=== PATIENT | male | born 1965 | race Caucasian/White ===

== ENCOUNTER 2016-03-13 10:54 | Emergency (ER) | payer OTHER ==
[~2016-03-13] VITALS: Ht 182.8 cm; Wt 93.0 kg
[2016-03-13] MEDS ORDERED: CYCLOBENZAPRINE10 MG PO (11:54)
[2016-03-13] MEDS ORDERED: NAPROSYN500 MG PO (11:54)
== END 2016-03-13 11:54 | disposition home or self-care (01) ==
LOC: ED 10:54
DX: M54.31 Sciatica, right side (principal)

== ENCOUNTER 2017-05-26 16:31 | Emergency (ER) | payer OTHER ==
[~2017-05-26] VITALS: Ht 182.8 cm; Wt 93.0 kg
[~2017-05-26 16:31] MED LIST: CYCLOBENZAPRINE10 MG PO; NAPROSYN500 MG PO
[2017-05-26 17:50] LABS: HEMATOCRIT 40.8 % (42.0-52.0); HEMOGLOBIN 14.2 g/dl (14.0-18.0); LYMPH # 0.9 10*3/uL (1.3-4.4); LYMPH % 14.1 % (27.0-41.0); MEAN CELL VOLUME 86.8 fl (80.0-94.0); MEAN CORPUSCULAR HGB 30.2 pg (27.0-31.0); MEAN CORPUSCULAR HGB CONC 34.8 g/dl (33.0-37.0); MEAN PLATELET VOLUME 9.5 fl (9.6-12.3); MONO # 0.7 10*3/uL (0.1-1.0); MONO % 11.2 % (3.0-9.0); NEUT # 4.7 10*3/uL (2.3-7.9); NEUT % 74.5 % (47.0-73.0); PLATELET COUNT AUTOMATED 150 10*3/uL (130-400); RED CELL DISTRI WIDTH 12.8 % (0-14.5); WHITE BLOOD COUNT 6.3 10*3/uL (4.8-10.8)
[2017-05-26 18:06] LABS: ALBUMIN 3.7 gm/dl (3.1-4.5); ALKALINE PHOSPHATASE 58 U/L (45-117); BUN 10 mg/dl (7-24); CHLORIDE 100 mmol/L (98-107); CREATININE 1.07 mg/dL (0.70-1.30); POTASSIUM 3.4 mmol/L (3.5-5.1); SGOT/AST 23 IU/L (3-35); SGPT/ALT 28 U/L (12-78); SODIUM 136 mmol/L (136-145)
[2017-05-26 18:08] LABS: TROPONIN I < 0.015 ng/ml (<0.045)
[2017-05-26] MEDS ORDERED: ZITHROMAX250 MG PO (18:35)
[2017-05-26] MEDS ORDERED: MEDROL DOSEPAK4 MG PO (18:35)
[2017-05-26] MEDS ORDERED: PROAIR HFA8.5 GM INH (18:35)
== END 2017-05-26 18:40 | disposition home or self-care (01) ==
LOC: ED 16:31
PROVIDERS: Nurse Practitioner Family
DX: J40 Bronchitis, not specified as acute or chronic (principal); R53.81 Other malaise; R51 Headache

== ENCOUNTER 2018-03-28 18:40 | Inpatient (IN) | payer OTHER ==
[~2018-03-28] VITALS: Ht 182.8 cm; Wt 85.8 kg
--- NOTE | ~2018-03-28 | EKG ---
[place], [place] ELECTROCARDIOGRAM REPORT NAME: LESIA MONTOYA UNIT #: [id number] ROOM: 530 DOCTOR: DOROTHY DRAFT REPORT BIRTHDATE: [birth year] [facility] Test Date: 2018-03-28 Test Time: 18:49:12 Pat Name: LESIA MONTOYA Department: Room: 530 Gender: M Candy Dipper Hand: Dominique Conley : 1965 Requested By: ART MCKEON DNP Order Number: [id number] Reading MD: Steven Plascencia MD Measurements Intervals [place] Rate: 140 P: CO: QRS: -19 QRSD: 84 T: 6 QT: 312 QTc: 476 Interpretive Statements Atrial fibrillation Ventricular premature complex or aberrant conduction Minimal ST depression, inferior leads Baseline wander in lead(s) V5 No previous ECG available for comparison Electronically Signed On 03-28-2018 19:27:06 PST by Steven Plascencia MD CM:EKGRPT:ELECTROCARDIOGRAM REPORT 48 26 ART DE LA CRUZ DRAFT REPORT ART MCKEON DNP
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
[~2018-03-28 18:40] MED LIST changes: +MEDROL DOSEPAK4 MG PO; +PROAIR HFA8.5 GM INH; +ZITHROMAX250 MG PO
[2018-03-28 18:41] VITALS: BP 110/81
--- NOTE | 2018-03-28 18:49 | NUR ---
EKG NOTIFIED OF PATIENT NEEDING EKG.
--- NOTE | 2018-03-28 19:05 | NUR ---
NURSE TO NURSE REPORT TAKEN. PT STABLE AT THIS TIME. NO VOICED COMPLAINTS. WILL CONTINUE TO MONITOR.
[2018-03-28 19:22] LABS: BASO % 0.2 % (0.0-1.0); HEMOGLOBIN 17.2 g/dl (14.0-18.0); LYMPH # 0.7 10*3/uL (1.3-4.4); LYMPH % 5.3 % (27.0-41.0); MEAN CELL VOLUME 88.8 fl (80.0-94.0); MEAN CORPUSCULAR HGB 30.6 pg (27.0-31.0); MEAN CORPUSCULAR HGB CONC 34.4 g/dl (33.0-37.0); MEAN PLATELET VOLUME 9.4 fl (9.6-12.3); MONO # 0.6 10*3/uL (0.1-1.0); MONO % 4.6 % (3.0-9.0); NEUT # 11.1 10*3/uL (2.3-7.9); NEUT % 89.6 % (47.0-73.0); PLATELET COUNT AUTOMATED 237 10*3/uL (130-400); RED BLOOD COUNT 5.63 10*6/uL (4.50-5.90); RED CELL DISTRI WIDTH 12.1 % (0-14.5); WHITE BLOOD COUNT 12.4 10*3/uL (4.8-10.8)
[2018-03-28 19:23] VITALS: BP 132/53
--- NOTE | 2018-03-28 19:26 | NUR ---
CARDIZEM IV INFUSING AT 5MG/HR, HR 146
[2018-03-28 19:30] LABS: ACT PARTIAL THROMBO TIME 25.4 SECONDS (20.8-31.5)
[2018-03-28 19:41] LABS: ALBUMIN 4.3 gm/dl (3.1-4.5); ALKALINE PHOSPHATASE 64 U/L (45-117); BUN 19 mg/dl (7-24); CHLORIDE 106 mmol/L (98-107); CREATININE 1.17 mg/dL (0.70-1.30); POTASSIUM 4.3 mmol/L (3.5-5.1); SGOT/AST 19 IU/L (3-35); SGPT/ALT 21 U/L (12-78); SODIUM 142 mmol/L (136-145); TOTAL PROTEIN 7.8 gm/dL (6.4-8.2)
[2018-03-28 19:44] LABS: TROPONIN I < 0.015 ng/ml (<0.045)
[2018-03-28 19:57] VITALS: BP 111/66
[2018-03-28 20:00] VITALS: BP 121/63
--- NOTE | 2018-03-28 20:00 | NUR ---
Time: A 52 year old M admitted to 5E under services of STERLING SNEED DO. Pt. arrived via bed from ER. Chief complaint: CHEST PAIN, NAUSEA. ANKUSH PORRAS
--- NOTE | 2018-03-28 20:17 | NUR ---
INCREASED CARDIZEM TO 10MG/HR. PT HR 112. B/P 111/66
--- NOTE | 2018-03-28 21:50 | NUR ---
CARDIOLOGY MADE AWARE OF CONSULT.
--- NOTE | 2018-03-28 21:56 | NUR ---
DR. ARZATE CONSULTED. DISCCUSED STABILITY AND TREATMENT OF PT. ORDERS ARE TO START PT ON ASPRIN 81MG DAILY. WILL PUT IN ORDERS VIA 'S REQUEST
[2018-03-29] VITALS: BP 120/72
--- NOTE | 2018-03-29 01:30 | NUR ---
PT'S CM SHOWS A CONVERTING TO NSR AT THIS TIME. MEDICAL OFFICE RECEPTIONIST ASSISTANT TO PRINT OUT COPIES FOR CHART.
[2018-03-29 02:58] LABS: BASO % 0.2 % (0.0-1.0); EOS % 0.1 % (1.0-4.0); LYMPH # 0.9 10*3/uL (1.3-4.4); LYMPH % 10.8 % (27.0-41.0); MEAN CELL VOLUME 89.3 fl (80.0-94.0); MEAN CORPUSCULAR HGB 30.8 pg (27.0-31.0); MEAN CORPUSCULAR HGB CONC 34.5 g/dl (33.0-37.0); MEAN PLATELET VOLUME 9.3 fl (9.6-12.3); MONO # 0.6 10*3/uL (0.1-1.0); MONO % 7.6 % (3.0-9.0); NEUT # 6.5 10*3/uL (2.3-7.9); NEUT % 81.2 % (47.0-73.0); PLATELET COUNT AUTOMATED 188 10*3/uL (130-400); RED BLOOD COUNT 4.84 10*6/uL (4.50-5.90); RED CELL DISTRI WIDTH 12.3 % (0-14.5); WHITE BLOOD COUNT 8.1 10*3/uL (4.8-10.8)
[2018-03-29 03:01] LABS: HEMATOCRIT 43.2 % (42.0-52.0); HEMOGLOBIN 14.9 g/dl (14.0-18.0)
[2018-03-29 03:18] LABS: ALBUMIN 3.3 gm/dl (3.1-4.5); ALKALINE PHOSPHATASE 50 U/L (45-117); BUN 18 mg/dl (7-24); CHLORIDE 110 mmol/L (98-107); CHOLESTEROL 139 mg/dL (<200); CREATININE 1.01 mg/dL (0.70-1.30); HDL CHOLESTEROL 37 mg/dl (40-60); POTASSIUM 3.6 mmol/L (3.5-5.1); SGOT/AST 17 IU/L (3-35); SGPT/ALT 17 U/L (12-78); SODIUM 142 mmol/L (136-145); TOTAL PROTEIN 6.1 gm/dL (6.4-8.2)
[2018-03-29 03:19] LABS: FREE T4 0.84 ng/dl (0.76-1.46); TRIGLYCERIDES 80 mg/dl (<150); VLDL CHOLESTEROL 16 mg/dL (6-40)
[2018-03-29 03:24] LABS: THYROID STIM HORMONE (HS) 0.541 uIU/ml (0.358-4.75)
[2018-03-29 03:29] LABS: LDL CHOLESTEROL 86 mg/dL (9-159)
--- NOTE | 2018-03-29 05:22 | NUR ---
PT'S HR STABLE IN 70'S NSR. CALLED TO ORDER CARDIZEM DRIP BE TURNED OFF. IN AGREEMENT. JHONATHAN HAS BEEN DC'D.
[2018-03-29 08:58] VITALS: BP 98/60
--- NOTE | 2018-03-29 11:08 | NUR ---
Hide Stretcher Hand in to talk to patient. Patient states lives at HOME with GIRLFRIEND. There are NO steps in the home. Physician: NO FAMILY BLOUNT [facility]acy: [facility] Home health services: NONE Patient's level of ADLs: INDEPENDENT Patient has working utilities: YES DME: NONE Follow-up physician's appointment after d/c: WILL FIND ONE AND MAKE APPOINTMENT, INFORMED PT ABOUT [facility]IDENT CL[facility]IC Does patient want to access PORTAL?: NO Discharge plan PT LIVES AT HOME WITH GIRLFRIEND AND IS INDEPENDENT IN CARE. DENIES ANY HOME NEEDS ON DISCHARGE. CAN BE DISICHARGED TO HOME WHEN MEDICALLY STABLE. . LILO RAM
[2018-03-29 12:00] VITALS: BP 115/58
--- NOTE | 2018-03-29 15:09 | NUR ---
C/o frontal headache medicated with norco per prn order.
[2018-03-29 16:00] VITALS: BP 115/69
--- NOTE | 2018-03-29 16:10 | NUR ---
Resting with eyes closed. No signs of pain at this time.
[2018-03-29 20:00] VITALS: BP 110/52
[2018-03-30] VITALS: BP 106/54
[2018-03-30 06:57] LABS: BASO % 0.4 % (0.0-1.0); EOS # 0.1 10*3/uL (0.0-0.4); EOS % 1.3 % (1.0-4.0); HEMATOCRIT 41.7 % (42.0-52.0); HEMOGLOBIN 13.6 g/dl (14.0-18.0); LYMPH # 1.4 10*3/uL (1.3-4.4); LYMPH % 25.5 % (27.0-41.0); MEAN CELL VOLUME 90.8 fl (80.0-94.0); MEAN CORPUSCULAR HGB 29.6 pg (27.0-31.0); MEAN CORPUSCULAR HGB CONC 32.6 g/dl (33.0-37.0); MEAN PLATELET VOLUME 9.7 fl (9.6-12.3); MONO # 0.6 10*3/uL (0.1-1.0); MONO % 11.6 % (3.0-9.0); NEUT # 3.3 10*3/uL (2.3-7.9); PLATELET COUNT AUTOMATED 183 10*3/uL (130-400); RED BLOOD COUNT 4.59 10*6/uL (4.50-5.90); RED CELL DISTRI WIDTH 12.3 % (0-14.5); WHITE BLOOD COUNT 5.4 10*3/uL (4.8-10.8)
[2018-03-30 07:21] LABS: CHLORIDE 110 mmol/L (98-107); POTASSIUM 3.6 mmol/L (3.5-5.1); SODIUM 142 mmol/L (136-145)
[2018-03-30 07:32] LABS: BUN 14 mg/dl (7-24); CREATININE 1.07 mg/dL (0.70-1.30)
[2018-03-30] MEDS ORDERED: ASPIRIN CHEWABL81 M1 PO (11:34)
[2018-03-30] MEDS ORDERED: MECLIZINE HCL25 M2 PO (11:34)
--- NOTE | 2018-03-30 13:38 | NUR ---
Discharge instructions reviewed with patient/family. Patient receptive and verbalizes understanding. Follow-up care arranged. Written instructions given to patient/family. JAMILA BILLY
== END 2018-03-30 13:38 | disposition home or self-care (01) | DRG 309 ==
LOC: ED 18:40 → EDHOLD 19:46 → 5E 19:46
PROVIDERS: Family Medicine; Internal Medicine; Nurse Practitioner Family; ADMIT Internal Medicine
DX: I48.91 Unspecified atrial fibrillation (principal); R65.10 Systemic inflammatory response syndrome (SIRS) of non-infectious origin without acute organ dysfunction; S06.0X9A Concussion with loss of consciousness of unspecified duration, initial encounter; E78.5 Hyperlipidemia, unspecified; W18.39XA Other fall on same level, initial encounter; R73.9 Hyperglycemia, unspecified; E83.41 Hypermagnesemia; D72.810 Lymphocytopenia; D72.9 Disorder of white blood cells, unspecified; D72.818 Other decreased white blood cell count; A08.4 Viral intestinal infection, unspecified; Z80.8 Family history of malignant neoplasm of other organs or systems; Z82.5 Family history of asthma and other chronic lower respiratory diseases; Y93.89 Activity, other specified; Y99.8 Other external cause status; Y92.89 Other specified places as the place of occurrence of the external cause

== ENCOUNTER 2018-04-10 19:53 | Emergency (ER) | payer OTHER ==
[~2018-04-10] VITALS: Ht 182.8 cm; Wt 93.0 kg
--- NOTE | ~2018-04-10 | EKG ---
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
--- NOTE | ~2018-04-10 | EKG ---
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52 : 1965 Requested By: ART MCKEON DNP Order Number: [id number] Reading MD: Steven Plascencia MD Measurements Intervals [place] Rate: 77 P: 50 IA: 140 QRS: -21 QRSD: 86 T: 21 QT: 378 QTc: 428 Interpretive Statements Sinus rhythm Borderline left axis deviation Compared to ECG 03/28/2018 18:49:12 Atrial fibrillation no longer present Aberrant conduction of supraventricular beat(s) no longer present ST (T wave) deviation no longer present Electronically Signed On 04-11-2018 18:00:20 PST by Steven Plascencia MD CM:EKGRPT:ELECTROCARDIOGRAM REPORT 09 99 ART MCKEON DNP EPIPHANY DRAFT REPORT ART MCKEON DNP
[~2018-04-10 19:53] MED LIST changes: +ASPIRIN CHEWABL81 M1 PO; +MECLIZINE HCL25 M2 PO
[2018-04-10 20:29] LABS: BASO # 0.1 10*3/uL (0.0-0.1); BASO % 0.7 % (0.0-1.0); EOS # 0.1 10*3/uL (0.0-0.4); EOS % 0.8 % (1.0-4.0); HEMATOCRIT 45.4 % (42.0-52.0); HEMOGLOBIN 15.3 g/dl (14.0-18.0); LYMPH # 2.1 10*3/uL (1.3-4.4); LYMPH % 30.1 % (27.0-41.0); MEAN CELL VOLUME 88.3 fl (80.0-94.0); MEAN CORPUSCULAR HGB 29.8 pg (27.0-31.0); MEAN CORPUSCULAR HGB CONC 33.7 g/dl (33.0-37.0); MEAN PLATELET VOLUME 9.3 fl (9.6-12.3); MONO # 0.7 10*3/uL (0.1-1.0); MONO % 9.1 % (3.0-9.0); NEUT # 4.2 10*3/uL (2.3-7.9); NEUT % 59.2 % (47.0-73.0); PLATELET COUNT AUTOMATED 253 10*3/uL (130-400); RED BLOOD COUNT 5.14 10*6/uL (4.50-5.90); RED CELL DISTRI WIDTH 12.1 % (0-14.5); WHITE BLOOD COUNT 7.1 10*3/uL (4.8-10.8)
[2018-04-10 20:46] LABS: ALBUMIN 3.7 gm/dl (3.1-4.5); ALKALINE PHOSPHATASE 54 U/L (45-117); BUN 17 mg/dl (7-24); CHLORIDE 110 mmol/L (98-107); CREATININE 1.18 mg/dL (0.70-1.30); POTASSIUM 4.3 mmol/L (3.5-5.1); SGOT/AST 16 IU/L (3-35); SGPT/ALT 23 U/L (12-78); SODIUM 142 mmol/L (136-145); TOTAL PROTEIN 6.9 gm/dL (6.4-8.2)
[2018-04-10 20:48] LABS: TROPONIN I < 0.015 ng/ml (<0.045)
[2018-04-10 21:42] LABS: ACT PARTIAL THROMBO TIME 26.3 SECONDS (20.8-31.5)
== END 2018-04-11 00:46 | disposition home or self-care (01) ==
LOC: ED 19:53
PROVIDERS: Nurse Practitioner Family
DX: R07.89 Other chest pain (principal); I48.91 Unspecified atrial fibrillation; F17.200 Nicotine dependence, unspecified, uncomplicated; Z79.82 Long term (current) use of aspirin; Z79.899 Other long term (current) drug therapy

== ENCOUNTER 2018-11-18 16:51 | Emergency (ER) | payer OTHER ==
[~2018-11-18] VITALS: Ht 182.8 cm; Wt 93.0 kg
[2018-11-18] MEDS ORDERED: AUGMENTIN 875-875 MG PO (18:01)
== END 2018-11-18 18:18 | disposition home or self-care (01) ==
LOC: ED 16:51
DX: J32.9 Chronic sinusitis, unspecified (principal); F17.200 Nicotine dependence, unspecified, uncomplicated

== ENCOUNTER 2019-03-18 08:59 | Inpatient (IN) | payer BC ==
[~2019-03-18] VITALS: Ht 182.8 cm; Wt 94.8 kg
[~2019-03-18 08:59] MED LIST changes: +AUGMENTIN 875-875 MG PO
[2019-03-18 09:05] VITALS: BP 132/90
[2019-03-18 10:18] LABS: BASO % 0.5 % (0.0-1.0); EOS # 0.1 10*3/uL (0.0-0.4); EOS % 0.9 % (1.0-4.0); HEMATOCRIT 45.6 % (42.0-52.0); HEMOGLOBIN 15.1 g/dl (14.0-18.0); LYMPH # 0.9 10*3/uL (1.3-4.4); MEAN CELL VOLUME 88.9 fl (80.0-94.0); MEAN CORPUSCULAR HGB 29.4 pg (27.0-31.0); MEAN CORPUSCULAR HGB CONC 33.1 g/dl (33.0-37.0); MEAN PLATELET VOLUME 9.8 fl (9.6-12.3); MONO % 14.4 % (3.0-9.0); NEUT # 4.7 10*3/uL (2.3-7.9); NEUT % 69.9 % (47.0-73.0); PLATELET COUNT AUTOMATED 190 10*3/uL (130-400); RED BLOOD COUNT 5.13 10*6/uL (4.50-5.90); RED CELL DISTRI WIDTH 12.6 % (0-14.5); WHITE BLOOD COUNT 6.7 10*3/uL (4.8-10.8)
[2019-03-18 10:30] LABS: ACT PARTIAL THROMBO TIME 29.3 SECONDS (20.0-32.1)
[2019-03-18 10:35] LABS: ALBUMIN 3.7 gm/dl (3.1-4.5); ALKALINE PHOSPHATASE 66 U/L (45-117); BUN 11 mg/dl (7-24); CHLORIDE 107 mmol/L (98-107); CREATININE 1.24 mg/dL (0.70-1.30); POTASSIUM 3.9 mmol/L (3.5-5.1); SGOT/AST 11 IU/L (3-35); SGPT/ALT 24 U/L (12-78); SODIUM 139 mmol/L (136-145); TOTAL PROTEIN 6.9 gm/dL (6.4-8.2)
[2019-03-18 10:41] LABS: TROPONIN I < 0.015 ng/ml (<0.045)
[2019-03-18 11:30] VITALS: BP 128/88
--- NOTE | 2019-03-18 12:35 | NUR ---
A 53, admitted to , under the services of MIRI Gillespie DO with a diagnosis of CHEST PAIN. Chief complaint is COUGH,DIZZY,CHEST PAIN. Patient arrived via wheel chair from ER. Monitor applied. Initial assessment completed. Vital signs taken and recorded. MIRI GILLESPIE DO notified of admission to the unit. Orders received. See assessment for past medical history, medications and allergies. Patient and/or family oriented to unit. [facility]. Clothing/patient valuable form completed. AMY MCHUGH
--- NOTE | 2019-03-18 15:30 | NUR ---
TAKING OVER PATIENT CARE AT THIS TIME, PATIENT ASSESSMENT COMPLETED WITHOUT INCIDENT AT THIS TIME, DENIES ANY CHEST PAIN/PRESSURE OR SHORTNESS OF BREATH AT THIS TIME, UNLESS HE IS COUGHING. STATED THAT THE "DOCTORS WERE JUST HERE AND SAID THAT THEY WERE GOING TO ORDER HIM SOMETHING FOR IT', AWAITING ORDERS. DENIES ANY OTHER NEEDS AT THIS TIME, CALL LIGHT WITHIN REACH, WILL CONTINUE TO MONITOR.
[2019-03-18 16:00] VITALS: BP 120/83
[2019-03-18 20:00] VITALS: BP 118/74
--- NOTE | 2019-03-18 20:15 | NUR ---
PATIENT ASSESSMENT COMPLETED AT THIS TIME WITHOUT INCIDENT. PATIENT DENIES ANY CHEST PAIN/PRESSURE OR SHORTNESS OF BREATH AT THIS TIME, DOES COMPLAIN OF A PERSISTANT HEADACHE, SHICH HE WAS PREVIOUSLY MEDICATED FOR AND PAIN IN HIS CHEST WHEN COUGHING. CALL LIGHT WITHIN REACH, WILL CONTINUE TO MONITOR.
--- NOTE | 2019-03-18 21:20 | NUR ---
24 HOUR CHART CHECK COMPLETED.
[2019-03-19] VITALS: BP 120/63
--- NOTE | 2019-03-19 00:19 | NUR ---
PT EDUCATED ON USE OF FLUTTER VALVE. PT USED PROPERLY WITH GOOD EFFORT.
--- NOTE | 2019-03-19 06:32 | NUR ---
ORTHOSTATIC BLOOD PRESSURES COMPLETED AT THIS TIME, PATIENT COMPLAINING OF HEADACHE AND DIZZINESS UNCHANGED FROM EARLIER IN THE SHIFT.
[2019-03-19 07:44] VITALS: BP 122/70
--- NOTE | 2019-03-19 08:06 | NUR ---
PT RESTING COMFORTABLY, PT NPO FOR POSSIBLE STRESS TEST. PAUL LANTIGUA SPNRCC
--- NOTE | 2019-03-19 08:30 | NUR ---
pt complained of headache that he has had for 2 days tylenol did not help nurse got an excendrin order. Katharina Odonnell spjuan antoniocc
--- NOTE | 2019-03-19 09:30 | NUR ---
NPO STATUS LIFTED PT TO HAVE STRESS TEST TOMORROW, #20 STARTED IN RIGHT UPPER ARM, PT SENT TO RADIOLOGY. PAUL LANTIGUA SPANGIECC
--- NOTE | 2019-03-19 10:30 | NUR ---
pt recieved excedrin for headache will follow up to see if the med helped lulu rivers
--- NOTE | 2019-03-19 11:30 | NUR ---
reassessed pt for headache pt states the headache is still the same. lulu harrison spnrcc
[2019-03-19 12:00] VITALS: BP 160/98
--- NOTE | 2019-03-19 13:26 | NUR ---
PT SITTING UP IN BED WAITING ON LUNCH. PAUL LANTIGUA SPNRCC
--- NOTE | 2019-03-19 13:30 | NUR ---
PT RECIEVED TYLENOL FOR A HEADACHE 8 OUT OF 10 WILL REASSESS IN AN HOUR PAUL STEPHENSONCC
[2019-03-19 13:38] VITALS: BP 150/96
--- NOTE | 2019-03-19 14:40 | NUR ---
PATIENT IS GETTING ECHO AT BEDSIDE.
[2019-03-19 16:00] VITALS: BP 124/65
[2019-03-19 20:00] VITALS: BP 134/75
[2019-03-20 00:10] VITALS: BP 136/86
--- NOTE | 2019-03-20 09:00 | NUR ---
Oral Surgery Technician in to talk to patient. Patient states lives at home with girlfriend There are few steps in the home. Physician: none at this time [facility]acy: [facility] Home health services: none Patient's level of ADLs: INDEPENDENT Patient has working utilities: all working DME: Follow-up physician's appointment after d/c: will be made by hospitalist nurse director with doctor of patient's choice Does patient want to access PORTAL?: no Discharge plan discussed with patient, he lives at home with girlfriend, he is independent in adls and ambulation works, drives, he will return home with medically stable and denies any home needs. RAQUEL HDZ
[2019-03-20] MEDS ORDERED: PREDNISONE10 MG PO (13:41)
[2019-03-20] MEDS ORDERED: IBU600 M1 PO (13:41)
[2019-03-20] MEDS ORDERED: PANTOPRAZOLE SO20 MG PO (13:41)
[2019-03-20] MEDS ORDERED: DOXYCYCLINE100 M3 PO (13:41)
--- NOTE | 2019-03-20 13:49 | NUR ---
PATIENT DISCHARGED TO HOME.
== END 2019-03-20 14:19 | disposition home or self-care (01) | DRG 314 ==
LOC: ED 08:59 → EDHOLD 11:41 → 4E 11:41
PROVIDERS: Emergency Medicine; ADMIT Family Medicine
DX: I30.9 Acute pericarditis, unspecified (principal); J18.9 Pneumonia, unspecified organism; I50.31 Acute diastolic (congestive) heart failure; M94.0 Chondrocostal junction syndrome [Tietze]; I95.1 Orthostatic hypotension; R09.1 Pleurisy; I48.0 Paroxysmal atrial fibrillation; J06.9 Acute upper respiratory infection, unspecified; E78.5 Hyperlipidemia, unspecified; E55.9 Vitamin D deficiency, unspecified; W18.30XA Fall on same level, unspecified, initial encounter; Y93.89 Activity, other specified; Y92.89 Other specified places as the place of occurrence of the external cause; Y99.8 Other external cause status; Z80.8 Family history of malignant neoplasm of other organs or systems; Z91.81 History of falling; Z84.89 Family history of other specified conditions; Z82.5 Family history of asthma and other chronic lower respiratory diseases; Z79.82 Long term (current) use of aspirin

== ENCOUNTER → 2020-01-21 | Outpatient (CLI) | payer BC ==
[~2020-01-21] MED LIST changes: +DOXYCYCLINE100 M3 PO; +IBU600 M1 PO; +PANTOPRAZOLE SO20 MG PO; +PREDNISONE10 MG PO
== END | disposition home or self-care (01) ==
LOC: COVID19 09:10
PROVIDERS: ATTEND Internal Medicine
DX: Z20.828 Contact with and (suspected) exposure to other viral communicable diseases (principal)

== ENCOUNTER 2020-08-30 12:28 | Inpatient (IN) | payer BC ==
[~2020-08-30] VITALS: Ht 182.9 cm; Wt 90.0 kg
[2020-08-30 12:42] VITALS: BP 149/93
[2020-08-30 13:13] LABS: BASO % 0.6 % (0.0-1.0); EOS # 0.2 10*3/uL (0.0-0.4); EOS % 2.9 % (1.0-4.0); HEMATOCRIT 47.3 % (42.0-52.0); LYMPH # 1.4 10*3/uL (1.3-4.4); LYMPH % 19.5 % (27.0-41.0); MEAN CELL VOLUME 87.1 fl (80.0-94.0); MEAN CORPUSCULAR HGB 29.3 pg (27.0-31.0); MEAN CORPUSCULAR HGB CONC 33.6 g/dl (33.0-37.0); MEAN PLATELET VOLUME 9.7 fl (9.6-12.3); MONO # 0.6 10*3/uL (0.1-1.0); MONO % 9.3 % (3.0-9.0); NEUT # 4.7 10*3/uL (2.3-7.9); NEUT % 67.4 % (47.0-73.0); PLATELET COUNT AUTOMATED 225 10*3/uL (130-400); RED BLOOD COUNT 5.43 10*6/uL (4.50-5.90); RED CELL DISTRI WIDTH 12.8 % (0-14.5); WHITE BLOOD COUNT 6.9 10*3/uL (4.8-10.8)
[2020-08-30 13:19] VITALS: BP 128/76
[2020-08-30 13:28] LABS: ALBUMIN 3.7 gm/dl (3.1-4.5); ALKALINE PHOSPHATASE 64 U/L (45-117); BUN 12 mg/dl (7-24); CHLORIDE 110 mmol/L (98-107); CREATININE 1.15 mg/dL (0.70-1.30); POTASSIUM 3.3 mmol/L (3.5-5.1); SGOT/AST 14 IU/L (3-35); SGPT/ALT 21 U/L (12-78); SODIUM 141 mmol/L (136-145); TOTAL PROTEIN 7.3 gm/dL (6.4-8.2)
[2020-08-30 13:30] LABS: TROPONIN I < 0.015 ng/ml (<0.045)
[2020-08-30 13:44] VITALS: BP 131/70
[2020-08-30 17:40] VITALS: BP 131/85
[2020-08-30 20:00] VITALS: BP 143/65
[2020-08-31] VITALS: BP 138/84
[2020-08-31 06:42] LABS: BASO % 0.6 % (0.0-1.0); EOS # 0.2 10*3/uL (0.0-0.4); EOS % 3.9 % (1.0-4.0); HEMATOCRIT 46.5 % (42.0-52.0); LYMPH # 1.6 10*3/uL (1.3-4.4); MEAN CELL VOLUME 88.9 fl (80.0-94.0); MEAN CORPUSCULAR HGB 28.5 pg (27.0-31.0); MEAN PLATELET VOLUME 9.8 fl (9.6-12.3); MONO # 0.7 10*3/uL (0.1-1.0); MONO % 11.5 % (3.0-9.0); NEUT # 3.6 10*3/uL (2.3-7.9); NEUT % 57.8 % (47.0-73.0); PLATELET COUNT AUTOMATED 209 10*3/uL (130-400); RED BLOOD COUNT 5.23 10*6/uL (4.50-5.90); RED CELL DISTRI WIDTH 12.8 % (0-14.5); WHITE BLOOD COUNT 6.2 10*3/uL (4.8-10.8)
[2020-08-31 07:11] LABS: ALBUMIN 3.4 gm/dl (3.1-4.5); ALKALINE PHOSPHATASE 60 U/L (45-117); BUN 15 mg/dl (7-24); CHLORIDE 110 mmol/L (98-107); CREATININE 0.93 mg/dL (0.70-1.30); POTASSIUM 3.9 mmol/L (3.5-5.1); SGOT/AST 12 IU/L (3-35); SGPT/ALT 21 U/L (12-78); SODIUM 141 mmol/L (136-145); TOTAL PROTEIN 6.8 gm/dL (6.4-8.2)
[2020-08-31 08:00] VITALS: BP 123/86
[2020-08-31 09:12] VITALS: BP 122/98
[2020-08-31 12:00] VITALS: BP 130/76
[2020-08-31 16:00] VITALS: BP 123/69
== END 2020-08-31 17:13 | disposition home or self-care (01) | DRG 206 ==
LOC: ED 12:28 → EDHOLD 15:54 → 5E 15:54
PROVIDERS: Emergency Medicine; Internal Medicine; ADMIT Student in an Organized Health Care Education/Training Program; ATTEND Student in an Organized Health Care Education/Training Program
PROC: 4A02XM4 Measurement of Cardiac Total Activity, External Approach (ICD-10-PCS; principal; 2020-08-31)
PROC: 3E073KZ Introduction of Other Diagnostic Substance into Coronary Artery, Percutaneous Approach (ICD-10-PCS; 2020-08-31)
DX: M94.0 Chondrocostal junction syndrome [Tietze] (principal); I50.32 Chronic diastolic (congestive) heart failure; R17 Unspecified jaundice; E86.0 Dehydration; E87.6 Hypokalemia; E83.41 Hypermagnesemia; I48.0 Paroxysmal atrial fibrillation; R73.9 Hyperglycemia, unspecified; E78.5 Hyperlipidemia, unspecified; Z91.030 Bee allergy status; Z82.5 Family history of asthma and other chronic lower respiratory diseases

== ENCOUNTER 2021-06-28 09:45 | Emergency (ER) | payer BC ==
[~2021-06-28] VITALS: Wt 93.0 kg
[2021-06-28] MEDS ORDERED: NAPROSYN500 MG PO (12:35)
== END 2021-06-28 12:52 | disposition home or self-care (01) ==
LOC: ED 09:45
DX: S32.10XA Unspecified fracture of sacrum, initial encounter for closed fracture (principal); S32.2XXA Fracture of coccyx, initial encounter for closed fracture; M25.552 Pain in left hip; Z91.030 Bee allergy status; Z90.49 Acquired absence of other specified parts of digestive tract; Z90.89 Acquired absence of other organs; Z98.890 Other specified postprocedural states; W18.30XA Fall on same level, unspecified, initial encounter; Y93.89 Activity, other specified; Y92.89 Other specified places as the place of occurrence of the external cause; Y99.8 Other external cause status

== ENCOUNTER 2022-05-17 08:53 | Emergency (ER) | payer OTHER, BC ==
[~2022-05-17] VITALS: Wt 93.0 kg
[2022-05-17] MEDS ORDERED: IBU800 M2 PO (10:42)
== END 2022-05-17 10:52 | disposition home or self-care (01) ==
LOC: ED 08:53
DX: S20.211A Contusion of right front wall of thorax, initial encounter (principal); V47.5XXA Car driver injured in collision with fixed or stationary object in traffic accident, initial encounter; Y93.89 Activity, other specified; Y92.89 Other specified places as the place of occurrence of the external cause; Y99.8 Other external cause status

== ENCOUNTER 2022-06-21 20:19 | Emergency (ER) | payer OTHER, BC ==
[~2022-06-21] VITALS: Ht 182.8 cm; Wt 97.5 kg
[~2022-06-21 20:19] MED LIST changes: +IBU800 M2 PO
[2022-06-21] MEDS ORDERED: IBUPROFEN600 MG PO (21:33)
== END 2022-06-21 21:45 | disposition home or self-care (01) ==
LOC: ED 20:19
DX: S49.92XA Unspecified injury of left shoulder and upper arm, initial encounter (principal); I48.91 Unspecified atrial fibrillation; Z91.030 Bee allergy status; Z88.1 Allergy status to other antibiotic agents; Z90.89 Acquired absence of other organs; Z98.890 Other specified postprocedural states; X50.0XXA Overexertion from strenuous movement or load, initial encounter; Y93.89 Activity, other specified; Y92.89 Other specified places as the place of occurrence of the external cause; Y99.0 Civilian activity done for income or pay

== ENCOUNTER 2023-04-23 21:45 | Emergency (ER) | payer BC ==
[~2023-04-23] VITALS: Ht 172.7 cm; Wt 72.6 kg
[~2023-04-23 21:45] MED LIST changes: +IBUPROFEN600 MG PO
[2023-04-23] MEDS ORDERED: SODIUM CHLORIDE 0.9% 1,000 ML IV ONE ×2 (22:00→22:05)
[2023-04-23 22:07] LABS: BASO # 0.1 10*3/uL (0.0-0.1); BASO % 0.6 % (0.0-1.0); EOS # 0.3 10*3/uL (0.0-0.4); EOS % 3.5 % (1.0-4.0); HEMATOCRIT 52.2 % (42.0-52.0); LYMPH # 2.6 10*3/uL (1.3-4.4); LYMPH % 31.4 % (27.0-41.0); MEAN CELL VOLUME 88.5 fl (80.0-94.0); MEAN CORPUSCULAR HGB CONC 32.8 g/dl (33.0-37.0); MEAN PLATELET VOLUME 9.4 fl (9.6-12.3); MONO # 0.9 10*3/uL (0.1-1.0); MONO % 10.5 % (3.0-9.0); NEUT # 4.5 10*3/uL (2.3-7.9); NEUT % 53.8 % (47.0-73.0); PLATELET COUNT AUTOMATED 264 10*3/uL (130-400); RED CELL DISTRI WIDTH 12.8 % (0-14.5); WHITE BLOOD COUNT 8.3 10*3/uL (4.8-10.8)
[2023-04-23 22:19] LABS: ACT PARTIAL THROMBO TIME 29.3 SECONDS (20.0-32.1)
[2023-04-23 22:27] LABS: ALKALINE PHOSPHATASE 69 U/L (46-116); BUN 12 mg/dl (9-23); CHLORIDE 106 mmol/L (98-107); POTASSIUM 3.6 mmol/L (3.4-5.1); SGPT/ALT 14 U/L (5-49); TOTAL PROTEIN 7.4 gm/dL (6.0-8.0)
== END 2023-04-23 23:36 | disposition home or self-care (01) ==
LOC: ED 21:45
PROVIDERS: Internal Medicine
DX: B34.9 Viral infection, unspecified (principal); Z20.822 Contact with and (suspected) exposure to COVID-19; R07.89 Other chest pain; E78.00 Pure hypercholesterolemia, unspecified; R73.9 Hyperglycemia, unspecified; E83.41 Hypermagnesemia; E87.6 Hypokalemia; I48.91 Unspecified atrial fibrillation; Z91.030 Bee allergy status; Z88.1 Allergy status to other antibiotic agents; Z90.89 Acquired absence of other organs; Z98.890 Other specified postprocedural states

== ENCOUNTER 2023-10-21 16:29 | Emergency (ER) | payer OTHER ==
[~2023-10-21] VITALS: Ht 182.8 cm; Wt 97.5 kg
[2023-10-21] MEDS ORDERED: Lidocaine Hydrochloride 30 ML VIAL IM ONE ×2 (16:55→17:05)
[2023-10-21] MEDS ORDERED: CLINDAMYCIN HC300 MG PO (16:56)
== END 2023-10-21 17:12 | disposition home or self-care (01) ==
LOC: ED 16:29
DX: S61.211A Laceration without foreign body of left index finger without damage to nail, initial encounter (principal); I48.91 Unspecified atrial fibrillation; Z91.030 Bee allergy status; Z88.1 Allergy status to other antibiotic agents; Z90.49 Acquired absence of other specified parts of digestive tract; Z90.89 Acquired absence of other organs; Z98.890 Other specified postprocedural states; W26.8XXA Contact with other sharp object(s), not elsewhere classified, initial encounter; Y93.89 Activity, other specified; Y92.89 Other specified places as the place of occurrence of the external cause; Y99.8 Other external cause status

== ENCOUNTER 2024-07-26 07:39 | Emergency (ER) | payer OTHER ==
[~2024-07-26] VITALS: Ht 182.8 cm; Wt 93.0 kg
[~2024-07-26 07:39] MED LIST changes: +CLINDAMYCIN HC300 MG PO
[2024-07-26] MEDS ORDERED: SODIUM CHLORIDE 0.9% 1,000 ML IV ONE (08:30)
[2024-07-26] MEDS ORDERED: Ondansetron Hydrochloride 4 MG/2 ML VIAL IV ONE (08:30)
[2024-07-26 08:57] LABS: BASO % 0.2 % (0.0-1.0); HEMATOCRIT 45.6 % (42.0-52.0); MEAN CELL VOLUME 87.4 fl (80.0-94.0); MEAN CORPUSCULAR HGB 29.5 pg (27.0-31.0); MEAN CORPUSCULAR HGB CONC 33.8 g/dl (33.0-37.0); MEAN PLATELET VOLUME 9.2 fl (9.6-12.3); MONO % 7.8 % (3.0-9.0); NEUT # 10.3 10*3/uL (2.3-7.9); PLATELET COUNT AUTOMATED 202 10*3/uL (130-400); RED BLOOD COUNT 5.22 10*6/uL (4.50-5.90); RED CELL DISTRI WIDTH 12.8 % (0-14.5); WHITE BLOOD COUNT 12.3 10*3/uL (4.8-10.8)
[2024-07-26 09:19] LABS: ALKALINE PHOSPHATASE 62 U/L (46-116); BUN 10 mg/dl (9-23); CHLORIDE 102 mmol/L (98-107); POTASSIUM 3.9 mmol/L (3.4-5.1); SGPT/ALT 10 U/L (5-49); TOTAL PROTEIN 6.8 gm/dL (6.0-8.0)
[2024-07-26] MEDS ORDERED: IOHEXOL 300 MG/ML 100 ML VIAL IV ONE (09:40)
[2024-07-26] MEDS ORDERED: IOHEXOL 300 MG/ML 100 ML VIAL ONE (10:00)
[2024-07-26] MEDS ORDERED: METRONIDAZOLE500 M1 PO (12:24)
[2024-07-26] MEDS ORDERED: CIPRO500 MG PO (12:24)
[2024-07-26] MEDS ORDERED: Ondansetron4 MG PO (12:25)
== END 2024-07-26 12:44 | disposition home or self-care (01) ==
LOC: ED 07:39
PROVIDERS: Internal Medicine
DX: K52.9 Noninfective gastroenteritis and colitis, unspecified (principal); R11.2 Nausea with vomiting, unspecified; I48.91 Unspecified atrial fibrillation; Z88.1 Allergy status to other antibiotic agents; Z91.030 Bee allergy status; Z90.89 Acquired absence of other organs; Z98.890 Other specified postprocedural states